=== PATIENT | female | born 1975 | race Two or more races ===

== ENCOUNTER 2022-11-12 10:48 | Emergency (ER) | payer SELFPAY ==
[~2022-11-12] VITALS: Ht 157.5 cm; Wt 85.7 kg
[2022-11-12 14:22] VITALS: BP 169/98
== END 2022-11-12 14:24 | disposition home or self-care (01) ==
LOC: ER 10:48
DX: S09.90XA Unspecified injury of head, initial encounter (principal); W18.39XA Other fall on same level, initial encounter; Y93.89 Activity, other specified; Y92.89 Other specified places as the place of occurrence of the external cause; Y99.8 Other external cause status
CPT/HCPCS: 70450; 72125